=== PATIENT | female | born 1950 | race Caucasian/White ===

== ENCOUNTER → 2016-07-01 | Day surgery (SDC) | payer MEDICARE, OTHER ==
--- NOTE | 2016-06-28 08:31 | MH ---
cc: LAUREEN ROMERO DATE OF ADMISSION: 07/01/2016 PRINCIPAL DIAGNOSIS Discordant left breast biopsy and history of right breast cancer. ATTENDING PHYSICIAN Laureen Romero MD HISTORY OF PRESENT ILLNESS The patient is a 65-year-old female with a history of right breast cancer treated with lumpectomy and whole breast radiation as well as right axillary sampling in 2005. She also completed 5 years of anastrozole but did not require systemic therapy. A screening mammogram on October 13 in [place] demonstrated a density in the left breast and this was confirmed with a diagnostic left breast mammogram and ultrasound on November 02, 2015. Ultrasound-guided core biopsy was performed in [place] and this demonstrated a fibrolipoma. Followup bilateral diagnostic imaging on April 26 demonstrated very dense breasts, but an ultrasound of the left breast demonstrated a hypoechoic mass at 12 o'clock 3 cm from the nipple which had increased in size and was now 8 x 10 x 5 mm. The radiologist felt that the previous biopsy was discordant and needle localized excision was recommended. The patient is now referred by Dr. Blas for this procedure. MEDICAL PROBLEMS Include: 1. Hypertension. 2. Type 2 [id number] diabetes. 3. History a right breast cancer. PAST SURGERIES Include: 1. Hysterectomy for fibroids in 1993. 2. Right breast lumpectomy and axillary sampling. 3. Cystopexy for prolapse in 2007. 4. Bilateral oophorectomy in 1998. 5. Laparoscopic cholecystectomy. CURRENT MEDICATIONS Include: 1. Metformin 850 mg t.i.d. 2. Glipizide 10 mg b.i.d. 3. Januvia 100 mg daily. 4. Amlodipine 10 mg daily. 5. Losartan 25 mg daily. ALLERGIES She is allergic to ASPIRIN WHICH IS ASSOCIATED WITH SWELLING. FAMILY HISTORY Family history was noncontributory. REPRODUCTIVE HISTORY G4, P2, A2. Menarche age 12, first child age 23, surgical menopause age 43. She took hormone replacement for approximately 3 years but none since her breast cancer diagnosis. REVIEW OF SYSTEMS 12-point review of systems was positive for a thyroid nodule and workup is in progress. PHYSICAL EXAMINATION GENERAL: She is alert and oriented x3 and in no acute distress. VITAL SIGNS: She was 5 feet 1 inch and weighed 135 pounds with a BMI of 25.5. Blood pressure was 131/73, temperature 98.7, heart rate 94, respirations 16. HEENT: Pupils are equal, round, reactive to light with a normal ocular range of motion. NECK: The neck was supple with no adenopathy or thyromegaly. CHEST: Chest was clear throughout. CARDIAC: Exam revealed a normal S1 and S2 with no murmurs, rubs or gallops. BREAST: Exam revealed fibrocystic changes and asymmetry with the left breast being larger than the right. There was an area of induration in the outer right breast. There were no palpable breast masses. There was an 11 o'clock periareolar and crescent chest wall scars in the right breast with associated induration as well as a right axillary scar. There was no lymphedema. ABDOMEN: Her abdominal exam was significant for port scars and a Pfannenstiel scar and there was no masses or tenderness. The remainder of her exam was unremarkable. IMPRESSION Ms. Mendez has a history of right breast cancer with a left breast mass and what is considered a discordant image guided biopsy diagnosis. She has agreed to undergo needle-localized excision of the mass and understands the risks and benefits of the procedure. [facility] #[id number] MD NADEGE Sylvester/HAI /1:45 PM /8:31 AM
[~2016-07-01] MED LIST: ALAV10TA10 PO; AMLO10 PO; BUPIVACAINE HCL PF 0.5% 10 ML VIAL ONE; CARA1SUS3 PO; CIPR-9 PO; CROM4SOL2 EACH EYE; GABA600T PO; GLIP10TA6 PO; GLUCTES12; HYDR2.5C TOPICAL; INFL1INJ53 IM; LACTATED RINGER'S 1000 ML INJ 1,000 ML ONE; LANCETS1 MI1; LORA10TA PO; LOSA25TA PO; METF850 PO; METF850T PO; METO10TA PO; MIDAZOLAM HCL 2 MG/2 ML VIAL ONE; ONDANSETRON HCL 4 MG/2 ML VIAL IV PUSH ONE; PANT40TA3 PO; PENL8SOL TOPICAL; PNEU13P IM; PROPOFOL 200 MG/20 ML AMP IV ONE; PROT40TA PO; SITA1TAB2 PO; TERB250T4 PO; ZOSTINJ SQ; ceFAZolin 2 GM PREMIX 50 ML ONE
--- NOTE | 2016-07-01 11:54 | TN ---
cc: LAUREEN ROMERO DATE OF SURGERY 07/01/2016 DATE OF 1950 PRINCIPAL DIAGNOSIS Discordant left breast biopsy with left breast mass. POSTOPERATIVE DIAGNOSIS Discordant left breast biopsy with left breast mass. PROCEDURE PERFORMED Left breast needle-localized lumpectomy. SURGEON Laureen Romero MD ANESTHESIA General via LMA device INDICATIONS The patient is a 66-year-old female with a history of right breast cancer who developed a left breast mass. Previous ultrasound-guided biopsy in [place] demonstrated a fibrolipoma but the mass continues to grow and the biopsy is considered discordant. Needle localized excision was recommended and the patient now presents for the procedure. FINDINGS AT THE TIME OF SURGERY Left breast mammogram did demonstrate an intact wire and the mass and biopsy clip were within the specimen. PROCEDURE PERFORMED After informed consent was obtained and site verification was performed, the patient was brought to the radiology suite where she underwent needle localization of her left breast mass. She was then brought to the major operating room where the mass was noted to be at 12 o'clock 3 cm from the nipple beneath the wire. A periareolar skin incision was anesthetized with 0.5% Marcaine plain and incised sharply. The wire entry point through the skin was then identified and secured with a hemostat and the wire was cut off at the skin with pin cutters. A 2-0 silk transfixion suture was placed at the wire entry point into the breast tissue and sharp and electrocautery dissection was then performed circumferentially around the wire and mass. The specimen was oriented with two sutures laterally, one short suture superiorly, and one long suture anteriorly. The specimen was sent to mammography with the findings as noted and was then sent for permanent pathologic evaluation. Hemostasis was easily obtained with electrocautery and the wound was closed using interrupted 3-0 Vicryl subcutaneous sutures and a 4-0 Monocryl subcuticular suture. Steri-Strips and sterile dressing were applied. The patient tolerated the procedure well with minimal blood loss and she was extubated in the operating room and brought to recovery room in good condition. All sponge and needle counts were correct at the conclusion of the case. MD NADEGE Sylvester/MANPREET /11:42 AM /11:50 AM
== END | disposition home or self-care (01) ==
LOC: ESDC 07:54
PROVIDERS: ATTEND Surgery
DX: N60.82 Other benign mammary dysplasias of left breast (principal); Z85.3 Personal history of malignant neoplasm of breast
CPT/HCPCS: 00400; 19125; 88305; J0690; J2250; J2405; J3010; J7120; 88307